=== PATIENT | female | born 1985 | race Caucasian/White ===

== ENCOUNTER → 2016-06-22 | Outpatient (REF) | payer OTHER ==
[2016-06-22 14:07] LABS: FREE T4 1.06 NG/DL (0.76-1.46)
== END ==
LOC: M SFHCPLAZ 10:22
PROVIDERS: ATTEND Nurse Practitioner Family
DX: E03.9 Hypothyroidism, unspecified (principal); E55.9 Vitamin D deficiency, unspecified

== ENCOUNTER → 2016-12-28 | Outpatient (REF) | payer OTHER, MEDICAID ==
[2016-12-28 13:33] LABS: FREE T4 0.8 NG/DL (0.76-1.46)
== END ==
LOC: M SFHCPLAZ 09:10
PROVIDERS: ATTEND Nurse Practitioner Family
DX: E03.9 Hypothyroidism, unspecified (principal); E55.9 Vitamin D deficiency, unspecified

== ENCOUNTER → 2017-04-27 | Outpatient (REF) | payer OTHER, MEDICAID ==
[2017-04-27 13:59] LABS: FREE T4 0.93 NG/DL (0.76-1.46)
== END ==
LOC: M SFHCPLAZ 09:38
PROVIDERS: ATTEND Nurse Practitioner Family
DX: E03.9 Hypothyroidism, unspecified (principal)

== ENCOUNTER → 2017-05-30 | Outpatient (REF) | payer MEDICAID, OTHER | LOC: M SFHCPLAZ 05-31 11:26 | DX: J02.9 Acute pharyngitis, unspecified (principal) ==

== ENCOUNTER → 2017-08-03 | Outpatient (REF) | payer MEDICAID ==
[2017-08-03 14:23] LABS: TOTAL 25(OH) VITAMIN D 41.8 NG/ML (30.0-100.0)
[2017-08-03 14:53] LABS: FREE T4 0.86 NG/DL (0.76-1.46)
== END ==
LOC: M SFHCPLAZ 10:21
DX: E03.9 Hypothyroidism, unspecified (principal); E55.9 Vitamin D deficiency, unspecified
CPT/HCPCS: 84443

== ENCOUNTER → 2018-12-06 | Outpatient (CLI) | payer OTHER, MEDICAID ==
[~2018-12-06] MED LIST: CONRAY-43 43% 50ML VIAL (Q9960) As Ordered ONE; PROHANCE 279.3MG/ML 5ML VIAL (A9576) As Ordered ONE
--- NOTE | 2018-12-06 09:27 | REP ---
Reason For Exam/Comment: Left shoulder pain Procedure: Left shoulder MRI arthrogram The procedure was performed by MIKE Glasgow, under the direct supervision of Dr. Woodall. The benefits and risks including but not limited to pain, infection, bleeding and anaphylaxis were explained to the patient and informed consent was obtained both verbally and written. Directly prior to the start of the procedure, a formal timeout was completed in the procedure room. Technique: The left glenohumeral joint was localized using fluoroscopic guidance. The skin was prepped and draped in the usual sterile fashion. 10 mL of 1% lidocaine was used as a local anesthetic. Using fluoroscopic guidance a 22-gauge spinal needle was inserted and advanced to the left glenohumeral joint space . 3 mL of Conray 43 was injected to verify needle placement. 12 mL of a solution containing 20 ml of sterile saline and a 0.15 ml of ProHance was injected into the joint. The needle was removed and the patient was taken MRI for post procedural imaging. The patient tolerated the procedure well and there were no immediate complications. 0.1 minutes of fluoroscopy time was utilized for this procedure. Some fluoroscopic images are performed with last image hold technology. These images require no additional radiation. Reviewed by MIKE Askew 12/06/2018 08:30 A Electronically Signed by Herbert Woodall MD 12/06/2018 09:18 A
--- NOTE | 2018-12-06 11:44 | REP ---
MR ARTHROGRAM LEFT SHOULDER: TECHNIQUE: Axial T2 fat sat, coronal oblique T1, T2 fat sat, post arthrogram axial T1 fat sat, proton density, coronal oblique T1 fat sat, T2 sat, sagittal oblique T2 fat sat, ABER T1 fat sat. There is mild ill-defined high signal on T2-weighted images involving the supraspinatus tendon, compatible with mild tendinopathy/tendonitis. I do not see evidence of a rotator cuff tendon tear. There are mild hypertrophic degenerative changes of the acromioclavicular joint with a tiny amount of fluid in the joint. The acromion is type 1. The biceps tendon is within the bicipital groove without significant tenosynovitis. There is no Hill-Sachs deformity. No abnormal signal is seen in the deltoid muscle. There is mild fraying of the biceps labral complex. There appears to be a partial undersurface tear of the superior labrum, which does not extend through the entire thickness of the labrum. This is best seen on the coronal oblique T2-weighted images both prior to and following the arthrogram procedure. Other portions of the labrum appear intact. There is no paralabral cyst. A couple of small subcentimeter subchondral cysts are seen in the superolateral humeral head. There is no bone marrow edema or occult fracture. There is normal amount of joint fluid. IMPRESSION: Mild supraspinatus tendinopathy/tendinitis without evidence of a rotator cuff tendon tear. 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 There is fraying of the biceps labral complex. There is a partial undersurface tear of the superior labrum, which does not extend through the entire thickness of the labrum. Electronically Signed by Herbert Wooadll MD 12/07/2018 01:01 P
== END ==
LOC: M RADPRO 06:44
PROVIDERS: ATTEND Orthopaedic Surgery
DX: M25.512 Pain in left shoulder (principal); M75.91 Shoulder lesion, unspecified, right shoulder; S43.432A Superior glenoid labrum lesion of left shoulder, initial encounter; Y92.89 Other specified places as the place of occurrence of the external cause; Y93.89 Activity, other specified; Y99.8 Other external cause status; X58.XXXA Exposure to other specified factors, initial encounter
CPT/HCPCS: 23350; 73223; 77002; A9576; Q9960

== ENCOUNTER → 2019-01-25 | Outpatient (REF) | payer MEDICAID ==
[2019-01-25 13:23] LABS: BASO # 0.1 10^3/uL (0.0-0.2); BASO % 0.5 % (0.0-1.0); EOS # 0.3 10^3/uL (0.0-0.50); EOS % 1.5 % (0.0-3.0); HEMATOCRIT 44.7 % (36.0-47.0); HEMOGLOBIN 14.6 g/dl (12.0-15.5); LYMPH % 20.4 % (24.0-44.0); MEAN CORPUSCULAR HEMOGLOBIN 31.1 pg (27.0-33.0); MEAN CORPUSCULAR HGB CONC 32.7 g/dl (32.0-36.5); MEAN CORPUSCULAR VOLUME 95.3 fl (80.0-96.0); MONO # 1.1 10^3/uL (0.0-0.8); MONO % 5.6 % (0.0-5.0); NEUTROPHILS # 14.2 10^3/uL (1.8-7.7); NEUTROPHILS % 71.5 % (36.0-66.0); PLATELET COUNT, AUTOMATED 444 10^3/uL (150-450); RED BLOOD COUNT 4.69 10^6/uL (4.00-5.40); WHITE BLOOD COUNT 19.8 10^3/uL (4.0-10.0)
[2019-01-25 13:37] LABS: ALBUMIN 4.3 GM/DL (3.2-5.2); ALT/SGPT 86 U/L (12-78); BILIRUBIN,TOTAL 0.2 MG/DL (0.2-1.0); BLOOD UREA NITROGEN 16 MG/DL (7-18); CALCIUM LEVEL 9.3 MG/DL (8.5-10.1); CARBON DIOXIDE LEVEL 24 MEQ/L (21-32); CHLORIDE LEVEL 107 MEQ/L (98-107); CHOLESTEROL LEVEL 183 MG/DL (<200); CHOLESTEROL RISK RATIO 4.575 (<5); CREATININE FOR GFR 0.86 MG/DL (0.55-1.30); FREE T4 1.19 NG/DL (0.76-1.46); GLOMERULAR FILTRATION RATE > 60.0 (>60); GLUCOSE, FASTING 80 MG/DL (70-100); HDL CHOLESTEROL 40 MG/DL (>40); LDL CHOLESTEROL 94 MG/DL (<100); NON-HDL-C 143 MG/DL; SODIUM LEVEL 138 MEQ/L (136-145); TOTAL PROTEIN 7.6 GM/DL (6.4-8.2); TRIGLYCERIDES LEVEL 243 MG/DL (<150)
[2019-01-25 13:44] LABS: HEMOGLOBIN A1c 5.6 %
== END ==
LOC: M LABDRAW1 13:00
PROVIDERS: ATTEND Physician Assistant
DX: Z00.01 Encounter for general adult medical examination with abnormal findings (principal)

== ENCOUNTER → 2020-01-14 | Outpatient (REF) | payer BC, OTHER | LOC: M SFHCLUC 15:57 | PROVIDERS: ATTEND Physician Assistant | DX: J02.9 Acute pharyngitis, unspecified (principal) ==

== ENCOUNTER → 2024-07-10 | Outpatient (CLI) | payer OTHER ==
[~2024-07-10] MED LIST changes: -CONRAY-43 43% 50ML VIAL (Q9960) As Ordered ONE; +ESTR0.03; +FERR325T19; +FLAS1KIT; +FOLI1TAB11; +HYDR50TA70; +IBUP-1022; +LEVO100T5; +LOSA50TA28; +OMEP-173; +ONDA-83; -PROHANCE 279.3MG/ML 5ML VIAL (A9576) As Ordered ONE; +TIZA10TA; +VENL75CA47
== END ==
LOC: M CARPUL 11:39
PROVIDERS: ATTEND Internal Medicine Medical Oncology
DX: C56.9 Malignant neoplasm of unspecified ovary (principal); Z79.899 Other long term (current) drug therapy

== ENCOUNTER → 2024-07-26 | Outpatient (CLI) | payer OTHER ==
[~2024-07-26] VITALS: Ht 147.3 cm; Wt 86.8 kg
[2024-07-26 07:20] VITALS: TEMP 97
[2024-07-26] MEDS: NS (Normal Saline) 0.9% 1,000 ML IV SCH (07:20)
[2024-07-26] MEDS: ceFAZolin SODIUM 2 GM in DEXTROSE 5% (D5W) ADV/MINI-BAG 50 ML IV ONE (07:47)
[2024-07-26] MEDS: fentaNYL 100 MCG/2 ML INJECTION IV PRN (08:08)
[2024-07-26] MEDS: MIDAZOLAM INJ 2MG/2ML VIAL IV PRN (08:08)
[2024-07-26] MEDS: LIDOCAINE 1% MDV 20ML VIAL SC ONE (08:16)
[2024-07-26 09:00] VITALS: BP 146/89; O2SAT 95
== END ==
LOC: M IRPRO 07:11
PROVIDERS: ATTEND Internal Medicine Medical Oncology
DX: C56.9 Malignant neoplasm of unspecified ovary (principal)
CPT/HCPCS: 36561; 99152; 99153; C1894; J0690; J1642; J2250; J3010

== ENCOUNTER 2024-09-28 20:39 | Inpatient (IN) | payer OTHER ==
[~2024-09-28] VITALS: Ht 147.3 cm; Wt 79.8 kg
[~2024-09-28 20:39] MED LIST changes: -HYDR50TA70; +HYDR50TA70 PO; -LEVO100T5; +LEVO100T5 PO; -LOSA50TA28; +LOSA50TA28 PO; -TIZA10TA; +TIZA10TA PO; -VENL75CA47; +VENL75CA47 PO
[2024-09-28 21:58] LABS: KETONE, URINE AUTO RFX NEGATIVE (NEGATIVE); LEUKOCYTE ESTERASE UR AUTO RFX NEGATIVE (NEGATIVE); NITRITE, URINE AUTO RFX NEGATIVE (NEGATIVE); RBC, URINE AUTO RFX 0 /HPF (0-3); SQUAM EPITHELIAL CELL UR AURFX 2 /HPF (0-6); WBC, URINE AUTO RFX 1 /HPF (0-3)
[2024-09-28] MEDS ORDERED: SODIUM CHLORIDE 0.9% INJ 10 ML SYR IV PRN (22:30)
[2024-09-28 22:41] LABS: LYMPH # 1.4 10^3/uL (1.5-5.0); LYMPH % 95.1 % (24.0-44.0); MEAN CORPUSCULAR HEMOGLOBIN 26.4 pg (27.0-33.0); MEAN CORPUSCULAR HGB CONC 32.6 g/dl (32.0-36.5); MEAN CORPUSCULAR VOLUME 80.8 fl (80.0-96.0); MONO % 1.4 % (2.0-8.0); NEUTROPHILS % 3.5 % (36.0-66.0); RED BLOOD COUNT 2.39 10^6/uL (4.00-5.40); WHITE BLOOD COUNT 1.4 10^3/uL (4.0-10.0)
[2024-09-28 22:43] LABS: HEMATOCRIT 19.3 % (36.0-47.0); HEMOGLOBIN 6.3 g/dl (12.0-15.5); NEUTROPHILS # 0.1 10^3/uL (1.5-8.5); PLATELET COUNT, AUTOMATED 64 10^3/uL (150-450)
[2024-09-28 22:54] LABS: ALBUMIN 3.5 G/DL (3.2-5.2); BILIRUBIN,DIRECT 0.1 MG/DL (<0.4); BILIRUBIN,TOTAL 0.5 MG/DL (0.3-1.2); CALCIUM LEVEL 7.8 MG/DL (8.5-10.1); CREATININE FOR GFR 0.85 MG/DL (0.55-1.30); GLOMERULAR FILTRATION RATE 89.3 (>60); POTASSIUM SERUM 3.3 MMOL/L (3.5-5.1); TOTAL PROTEIN 6.6 G/DL (5.7-8.2)
[2024-09-29] MEDS: LIDOCAINE VISCOUS 2% SOLN 15ML UDC SSP ONE (00:52)
[2024-09-29] MEDS: MORPHINE 4 MG/ML 1ML VIAL IV ONE (00:54)
[2024-09-29] MEDS: NS 500 ML IV ONE (00:55)
[2024-09-29] MEDS: METOCLOPRAMIDE INJ 10MG/2ML VIAL IV ONE (00:56)
[2024-09-29] MEDS ORDERED: ACETAMINOPHEN *IV* 1,000 MG in IV 1 EA IV PRN (01:30)
[2024-09-29] MEDS ORDERED: KETOROLAC 30 MG/ML 1ML VIAL IV PRN (01:30)
[2024-09-29] MEDS: NS (Normal Saline) 0.9% 1,000 ML IV SCH (01:40)
[2024-09-29 02:15] VITALS: BP 141/79; TEMP 96.9; O2SAT 100
[2024-09-29 02:30] VITALS: BP 137/79; TEMP 96.9; O2SAT 100
[2024-09-29] MEDS ORDERED: DOXY100C3 PO (02:55)
[2024-09-29] MEDS ORDERED: METO10TA3 PO (02:55)
[2024-09-29] MEDS ORDERED: IBUP200C34 PO (02:55)
[2024-09-29] MEDS ORDERED: CLIN1GEL22 TOP (02:55)
[2024-09-29] MEDS ORDERED: PROC10TA5 PO (02:55)
[2024-09-29] MEDS ORDERED: ESTR1TAB PO (02:55)
[2024-09-29] MEDS ORDERED: BUSP1TAB PO (03:01)
[2024-09-29] MEDS ORDERED: FARX1TAB3 PO (03:04)
[2024-09-29] MEDS ORDERED: HOME MED LIST COMPLETE! XX SCH (03:05)
[2024-09-29 03:20] VITALS: BP 166/98; TEMP 97.7; O2SAT 100
[2024-09-29] MEDS ORDERED: hydrOXYzine 50 MG TAB PO PRN (03:50)
[2024-09-29] MEDS: ONDANSETRON 4MG 2ML VIAL IV PRN (04:01)
[2024-09-29] MEDS: MORPHINE 2 MG/ML 1ML VIAL IV PRN (04:01)
[2024-09-29] MEDS: diphenhydrAMINE 50MG/ML VIAL IV SCH (04:01)
[2024-09-29] MEDS: KCL 10MEQ/100ML SWI (KRUN) 10 MEQ in IV 1 EA IV SCH (05:01)
[2024-09-29] MEDS: LEVOTHYROXINE 100MCG TABLET (0.1MG) PO SCH (05:57)
[2024-09-29 06:10] LABS: HEMATOCRIT 24.8 % (36.0-47.0); HEMOGLOBIN 8.1 g/dl (12.0-15.5); MEAN CORPUSCULAR HEMOGLOBIN 27.2 pg (27.0-33.0); MEAN CORPUSCULAR HGB CONC 32.7 g/dl (32.0-36.5); MEAN CORPUSCULAR VOLUME 83.2 fl (80.0-96.0); RED BLOOD COUNT 2.98 10^6/uL (4.00-5.40); WHITE BLOOD COUNT 1.2 10^3/uL (4.0-10.0)
[2024-09-29 06:15] LABS: PLATELET COUNT, AUTOMATED 58 10^3/uL (150-450)
[2024-09-29 06:37] LABS: CALCIUM LEVEL 7.1 MG/DL (8.5-10.1); CREATININE FOR GFR 0.87 MG/DL (0.55-1.30); GLOMERULAR FILTRATION RATE 86.9 (>60); MAGNESIUM LEVEL 0.8 MG/DL (1.8-2.4); POTASSIUM SERUM 3.9 MMOL/L (3.5-5.1)
[2024-09-29] MEDS ORDERED: MAG SULF 1GM/100ML (MAG RUN) 1 GM in IV 1 EA IV SCH (08:00)
[2024-09-29] MEDS: LOSARTAN 50MG TABLET PO SCH (08:52)
[2024-09-29] MEDS: busPIRone 5 MG TAB PO SCH (08:52)
[2024-09-29] MEDS ORDERED: ISOVUE-370 76% 100ML VIAL As Ordered ONE (08:55)
[2024-09-29] MEDS: MAG SULF 1GM/100ML (MAG RUN) 1 GM in IV 1 EA IV SCH ×2 (08:58→11:00)
[2024-09-29] MEDS ORDERED: SODIUM CHLORIDE 0.9% INJ 10 ML SYR IV SCH (09:00)
[2024-09-29 10:16] LABS: ATYPICAL LYMPH 2 % (0-5); LYMPHOCYTES 98 % (16-44)
[2024-09-29 10:18] LABS: PLATELET ESTIMATE DECREASED (NORMAL); STOMATOCYTES 1+; TEAR DROP CELLS 1+
[2024-09-29] MEDS: MAGNESIUM OXIDE 400MG TAB (MAG-OX) PO SCH (11:00)
[2024-09-29] MEDS ORDERED: GLUCOSE 4 GM CHEW PO PRN (11:10)
[2024-09-29] MEDS ORDERED: GLUCAGON INJ 1MG VIAL SC PRN (11:10)
[2024-09-29] MEDS ORDERED: DEXTROSE 50% 50ML SYRINGE IV PRN (11:10)
[2024-09-29 12:00] VITALS: BP 168/98; TEMP 97.8; O2SAT 100
[2024-09-29] MEDS: INSULIN LISPRO (NovoLOG) PER UNIT SC SCH ×2 (12:00→20:39)
[2024-09-29] MEDS: KETOROLAC 30 MG/ML 1ML VIAL IV SCH (12:28)
[2024-09-29] MEDS: FILGRASTIM 480 MCG/0.8 ML SYRINGE **SC ADMINISTRATION ONLY SC SCH (12:30)
[2024-09-29] MEDS: ACETAMINOPHEN 500 MG TAB PO SCH (12:31)
[2024-09-29] MEDS: DAPAGLIFLOZIN PROPANEDIOL 10MG TABLET (FARXIGA) PO SCH (12:31)
[2024-09-29] MEDS: LIDOCAINE VISCOUS 2% SOLN 15ML UDC SS SCH (12:31)
[2024-09-29] MEDS: estradioL 1 MG TAB PO SCH (12:31)
[2024-09-29] MEDS: MAGIC MOUTHWASH 5ML ORAL SYRINGE SSP SCH (12:34)
[2024-09-29 15:43] LABS: BASO % 0.9 % (0.0-1.0); LYMPH # 1.1 10^3/uL (1.5-5.0); LYMPH % 94.6 % (24.0-44.0); MONO % 2.7 % (2.0-8.0); NEUTROPHILS % 1.8 % (36.0-66.0)
[2024-09-29] MEDS: METOCLOPRAMIDE INJ 10MG/2ML VIAL IV PRN (16:20)
[2024-09-29 20:21] VITALS: BP 148/96; TEMP 97.5; O2SAT 100
[2024-09-29] MEDS: DOXYCYCLINE HYCLATE 100MG TABLET PO SCH (20:38)
[2024-09-29] MEDS: tiZANidine 4 MG TAB PO SCH (20:38)
[2024-09-29] MEDS: VENLAFAXINE **XR** 75MG CAPSULE PO SCH (20:38)
[2024-09-30 04:16] VITALS: BP 154/82; TEMP 97.5; O2SAT 99
[2024-09-30 05:17] LABS: HEMATOCRIT 22.9 % (36.0-47.0); HEMOGLOBIN 7.6 g/dl (12.0-15.5); LYMPH # 0.9 10^3/uL (1.5-5.0); LYMPH % 92.1 % (24.0-44.0); MEAN CORPUSCULAR HEMOGLOBIN 27.6 pg (27.0-33.0); MEAN CORPUSCULAR HGB CONC 33.2 g/dl (32.0-36.5); MEAN CORPUSCULAR VOLUME 83.3 fl (80.0-96.0); NEUTROPHILS % 1.9 % (36.0-66.0); RED BLOOD COUNT 2.75 10^6/uL (4.00-5.40)
[2024-09-30 05:34] LABS: PLATELET COUNT, AUTOMATED 30 10^3/uL (150-450)
[2024-09-30 05:52] LABS: BLOOD UREA NITROGEN 9 MG/DL (9-23); CARBON DIOXIDE LEVEL 29 MMOL/L (20-31); CHLORIDE LEVEL 102 MMOL/L (98-107); CREATININE FOR GFR 0.76 MG/DL (0.55-1.30); GLOMERULAR FILTRATION RATE > 90.0 (>60); GLUCOSE, FASTING 96 MG/DL (60-100); POTASSIUM SERUM 4.5 MMOL/L (3.5-5.1); SODIUM LEVEL 139 MMOL/L (136-145)
[2024-09-30 08:54] VITALS: BP 168/88
[2024-09-30] MEDS ORDERED: LIDO15SO9 SS (10:11)
[2024-09-30] MEDS ORDERED: MAGN400T2 PO (10:12)
[2024-09-30 11:09] VITALS: BP 163/93; TEMP 97.5; O2SAT 97
[2024-09-30] MEDS ORDERED: SODIUM CHLORIDE 0.9% INJ 10 ML SYR IV PRN (11:35)
[2024-09-30] MEDS: SODIUM CHLORIDE 0.9% INJ 10 ML SYR IV SCH (11:39)
== END 2024-09-30 11:50 | disposition home or self-care (01) | DRG 809 ==
LOC: M ED 20:39 → M ED INP 09-29 01:26 → M MSPAV 09-29 03:17
PROVIDERS: ADMIT Student in an Organized Health Care Education/Training Program; ATTEND Student in an Organized Health Care Education/Training Program
PROC: 30233N1 Transfusion of Nonautologous Red Blood Cells into Peripheral Vein, Percutaneous Approach (ICD-10-PCS; principal; 2024-09-29)
DX: D61.818 Other pancytopenia (principal); C56.2 Malignant neoplasm of left ovary; K12.31 Oral mucositis (ulcerative) due to antineoplastic therapy; R13.10 Dysphagia, unspecified; I10 Essential (primary) hypertension; J45.909 Unspecified asthma, uncomplicated; G47.33 Obstructive sleep apnea (adult) (pediatric); E03.9 Hypothyroidism, unspecified; T45.1X5A Adverse effect of antineoplastic and immunosuppressive drugs, initial encounter; E11.9 Type 2 diabetes mellitus without complications; L73.2 Hidradenitis suppurativa; E83.42 Hypomagnesemia; E78.5 Hyperlipidemia, unspecified; F32.A Depression, unspecified; Z90.79 Acquired absence of other genital organ(s); Z79.2 Long term (current) use of antibiotics; Z79.890 Hormone replacement therapy; Z79.899 Other long term (current) drug therapy; Z88.8 Allergy status to other drugs, medicaments and biological substances; Z91.040 Latex allergy status

== ENCOUNTER → 2024-12-02 | Outpatient (CLI) | payer OTHER ==
[~2024-12-02] MED LIST changes: +BUSP1TAB PO; +CLIN1GEL22 TOP; +DOXY100C3 PO; +ESTR1TAB PO; +FARX1TAB3 PO; +IBUP200C34 PO; +ISOVUE-370 76% 100 ML VIAL ONE; +LIDO15SO9 SS; +MAGN400T2 PO; +METO10TA3 PO; +PROC10TA5 PO
== END ==
LOC: M PLAIMG 12:41
PROVIDERS: ATTEND Obstetrics & Gynecology Gynecologic Oncology
DX: C56.2 Malignant neoplasm of left ovary (principal); Z92.21 Personal history of antineoplastic chemotherapy; K76.0 Fatty (change of) liver, not elsewhere classified; Z90.49 Acquired absence of other specified parts of digestive tract; Z98.890 Other specified postprocedural states
CPT/HCPCS: 74177; Q9967

== ENCOUNTER → 2025-03-12 | Outpatient (CLI) | payer OTHER ==
[~2025-03-12] MED LIST changes: -IBUP-1022; +IBUP600T42; +ISOVUE-370 76% 100 ML VIAL As Ordered ONE; -ISOVUE-370 76% 100 ML VIAL ONE
== END ==
LOC: M RAD 08:50
PROVIDERS: ATTEND Obstetrics & Gynecology Gynecologic Oncology
DX: Z08 Encounter for follow-up examination after completed treatment for malignant neoplasm (principal); Z85.43 Personal history of malignant neoplasm of ovary; E83.42 Hypomagnesemia; K76.0 Fatty (change of) liver, not elsewhere classified
CPT/HCPCS: 74177; Q9967